=== PATIENT | male | born 1985 | race Caucasian/White ===

== ENCOUNTER 2020-06-04 15:25 | Emergency (ER) | payer MEDICAID, SELFPAY ==
[2020-06-04 15:35] VITALS: BP 135/92; PULSE 100; RESP 18; TEMP 36.7; O2SAT 96; BMI 24.4
--- NOTE | 2020-06-04 15:41 | PC.NURSE ---
Pt tearful, visibly upset but cooperative. No exchange teller indicated at this time-pt searched by police prior to arrival. offered and accepted consult by recovery team, pending eval and medical clearance by MD first. Requested and given tissues, water.
--- NOTE | 2020-06-04 15:42 | PC.NURSE ---
Sammi from CARE team called and is contacting recovery team for pt for resoures.
--- NOTE | 2020-06-04 16:13 | ED.ALCOHOL ---
HPI - Alcohol General Chief Complaint: ETOH/Substance Use Stated Complaint: DRUG USE Time Seen by Provider: 06/04/20 15:39 Source: patient Mode of arrival: EMS Limitations: no limitations History of Present Illness HPI narrative: Patient is a 35-year-old male with a past medical history of hypertension who recently completed a 30 day rehab for opiate addiction, he was found in his car by [employer], patient was unarousable initially but were able to arouse him without using Narcan. Patient admits to using 1 bag of heroin. Patient states he got home on Sunday, has been staying with his father and his grandmother but feels overwhelmed with life in general, more specifically, he is worried he cannot pay his mortgage and he will lose his house. It is also his daughter 2nd birthday and he is emotional about it. Denies SI or HI and has no physical complaints. Patient states he does not know if he necessarily needs to return to rehab but needs some help getting his life in order. Related Data Previous Rx's Medication Instructions Recorded naloxone [Narcan] 4 mg INTRANASAL Q2M PRN #2 ea 06/04/20 Allergies Allergy/AdvReac Type Severity Reaction Status Date / Time No Known Allergies Allergy Unverified 12/11/19 15:52 Review of Systems Review of Systems: Yes all other systems are reviewed and are negative PMFSH Past Medical History Medical History Opiate abuse, continuous Social History Social History Alcohol intake: current Smoking Status: Smoker, status unknown Use of substances other than those prescribed or required for medical reasons: Yes Substance Use Type: Heroin Advance Directives: No Advance Directives Information Provided: Yes Physical Exam Vital Signs: Vital Signs: Last Vital Signs Temp 98.0 F 06/04/20 15:35 Pulse 100 06/04/20 15:35 Resp 18 06/04/20 15:35 BP 135/92 H 06/04/20 15:35 Pulse Ox 96 06/04/20 15:35 Body Mass Index 24.4 Const: General: cooperative, healthy appearing, comfortable, anxious (teary) and poor hygiene Orientation/consciousness: patient oriented x3 Limitations: no limitations HENMT: Head: Yes normal to inspection Ears: external ears abnormal (Dried blood on the right ear lobe) Eyes: General: appearance normal, both eyes and all related structures Pupils: Pinpoint pupils bilaterally Neck: Neck: Yes normal visual inspection and Yes full ROM Resp: Effort & Inspection: normal respiratory effort and able to speak in complete sentences Neuro: General: patient oriented x3 Extrem: General: Yes normal to inspection and Yes full ROM Psych: Appearance: disheveled Speech and movement: Normal speech and movement present Affect: Sad affect present Attitude: cooperative Thought process: Normal thought process present Thought content: suicidality and no homicidality Insight: Fair insight present (Psych) Judgement: Fair judgement present (Psych) Course Course Course Narrative: Patient is a 35-year-old male with a past medical history of hypertension who recently completed a 30 day rehab for opiate addiction, he was found in his car by [employer], patient was unarousable so they administered Narcan. After my discussion with him, is evident he is overwhelmed with ADLs, getting his bills in order so he relapsed. Will order drug screen, ETOH and eye care team eval. Will ask the legal recovery specialist is to speak with him as well. Reevaluation(s) Reevaluation #1: Patient advised me that an hour ago that he had tested positive for COVID, the date is unclear. I retested him for COVID and it was negative. Care team spoke with patient, they feel he is fine to be discharged in the care of his mother. Patient is also asking to be discharged. We will have the legal recovery specialist speak with the patient then call his mother and release him to the care of his mother. Time: 18:44 MDM - Alcohol Lab Data Labs: Lab Results 06/04/20 06/04/20 Range/Units 16:48 18:03 Ethyl Alcohol < 10 mg/dL COVID-19 ([place]) Negative (Negative) COVID-19 Clin Com See Note Discharge Plan Discharge Clinical Impression: Opioid use disorder Patient Disposition: Home, Self-Care Instructions: Opioid Use Disorder (ED) Additional Instructions: If you decide you would be in her best interest to return to a rehab facility, please come back to the ED and we will help you locate a facility if you are unable to find one on your own. I have also sent a prescription for Narcan to your pharmacy. Please be sure to fill this and have it available for your use or your family or friends use. Prescriptions: New Narcan 4 mg/actuation spray,non-aerosol 4 mg intranasal Q2M PRN (Reason: opioid overdose) Qty: 2 RF: 1
[2020-06-04 17:29] LABS: Ethanol < 10 mg/dL
--- NOTE | 2020-06-04 17:33 | PC.NURSE ---
CARE team at bedside
--- NOTE | 2020-06-04 18:06 | MHC.CARE ---
CARE Team meets with pt for consult due to recent relapse. Pt states that approx one month ago he was admitted to a [place] 35 facility due to heroin use. He states that once he was released, he was unable to fill suboxone due to change of insurance. He reports that that this lead to him snorting one bag of heorin today. He states that he pulled over and nodded off in his car, resulting in being brought to the ED. Pt states that his suboxone script is now availabel to him, and he denies needing any support with this. Pt is encouraged to come to the ED in the future if he needs help accessing suboxone, which he agrees to. Pt then reports that he is covid+, diagnosed 4 days ago. CARE Team communicates this with ED provider, MARISA Modi and JERMAN Rouse.
[2020-06-04 18:24] LABS: COVID-19 Test Negative (Negative)
--- NOTE | 2020-06-04 18:27 | PC.NURSE ---
Pt nodding off in bed, but easily arousable to verbal stimuli.
--- NOTE | 2020-06-04 19:09 | MHC.RECOVSUP ---
provide with resource o Current location: [place] o Identified substance use concern: Opioid - Support ? Intervention: o Community resources provided o Harm reduction discussion ? Plan: o Referral to CCC o Patient to follow up with H after discharge ? Additional information: I was able to engage with pt briefly before he was d/c. pt was found unresponsive in his vehicle. he was recently [place] due to his insurance lapsing. he has not been able to get his Rx of suboxone filled because of being uninsured. pt stated that he does not have a hx of mental health. I was able to provide him with recovery support and well as recovery resources. pt is experiencing homelessness and is living out of his car as a direct result of his drug use.
[2020-06-04 19:10] VITALS: RESP 16; O2SAT 97
== END 2020-06-04 19:11 | disposition home or self-care (01) ==
PROVIDERS: Physician Assistant; Emergency Provider Emergency Medicine Emergency Medical Services
DX: F11.10 Opioid abuse, uncomplicated (principal)
CPT/HCPCS: 36415; 80320; 87635; 99283; 99285

== ENCOUNTER 2021-08-21 15:43 | Emergency (ER) | payer MEDICAID, SELFPAY ==
[2021-08-21 16:09] VITALS: BP 151/96; PULSE 95; RESP 18; TEMP 36.9; O2SAT 96; BMI 25.4
== END 2021-08-21 17:58 | disposition left against medical advice (07) ==
PROVIDERS: Emergency Provider Emergency Medicine; PCP Internal Medicine
DX: M25.562 Pain in left knee (principal); M25.561 Pain in right knee
CPT/HCPCS: 99281

== ENCOUNTER 2024-02-14 21:03 | Emergency (ER) | payer MEDICAID, SELFPAY ==
[2024-02-14 21:31] VITALS: BP 155/103; PULSE 108; RESP 16; TEMP 37.5; O2SAT 96; BMI 26.9
--- NOTE | 2024-02-14 22:04 | PC.NURSE ---
patient exhibits unusual level of confusion, stated from the bathroom im shaking because im stressed out and reported he felt i was being rude to him. i explained that he would have other people to speak to if he felt he did not want to talk to me, notified charge nurse.
[2024-02-14 22:30] LABS: MANUAL DIFF FLAG NO
[2024-02-14 22:33] LABS: Basophils Percent Auto 0.6 % (0-2); Eosinophils Absolute Auto 0.1 X10*3/uL (0.0-0.4); Eosinophils Percent Auto 1.9 % (0-4); Hematocrit 38.3 % (42.0-52.0); Hemoglobin 13.6 g/dl (14.0-18.0); Imm Gran Abs Auto 0.01 X10*3/uL (0.00-0.03); Imm Gran Pct Auto 0.3 % (0.0-0.4); Mean Corpuscular HGB Conc 35.5 g/dl (31.0-36.0); Mean Corpuscular Hemoglobin 29.3 pg (27.0-33.0); Mean Corpuscular Volume 82.5 fL (80.0-98.0); Mean Platelet Volume 9.2 fL (9.4-12.4); Monocytes Absolute Auto 0.2 X10*3/uL (0.1-1.2); Monocytes Percent Auto 6.3 % (2-11); Neutrophils Absolute Auto 2.3 x10*3/uL (2.0-8.3); Neutrophils Percent Auto 63.9 % (45-73); Platelet Count 181 X10*3/uL (160-400); Red Blood Count 4.64 X10*6/uL (4.60-5.80); Red Cell Distribution Width 12.5 % (11.0-16.0); White Blood Count 3.6 X10*3/uL (4.8-10.8)
--- NOTE | 2024-02-14 22:38 | PC.NURSE ---
t/w completed person search of client revealing no evidence of injury or contraband with client. patient only had long acting lopressor and zoloft as medications accompanying client when asked client stated his other medications was at a parents home, t/w explained some facilities would require his own medications to accompany client.
[2024-02-14 22:42] LABS: Ethanol 84 mg/dL
[2024-02-14 22:45] LABS: Alanine Aminotransferase 33 U/L (0-40); Albumin Level 4.6 g/dL (3.5-5.0); Alkaline Phosphatase 81 U/L (39-117); Anion Gap 13 (12-20); Aspartate Amino Transferase 54 U/L (5-37); Bilirubin Total 0.6 mg/dL (0.0-1.0); Blood Urea Nitrogen 14 mg/dL (9-16); Calcium 9.1 mg/dL (8.4-10.2); Carbon Dioxide 28 mmol/L (22-29); Chloride 104 mmol/L (96-108); Creatinine Clr Calc Pharmacy 129.6; Estimated Glomerular Filt Rate > 60; Glucose Random 118 mg/dL (60-115); Potassium 3.9 mmol/L (3.3-5.1); Sodium 141 mmol/L (135-145); Total Protein 7.3 g/dL (6.5-8.0)
[2024-02-14 22:51] LABS: Amphetamine Screen Urine Not Detected (Not Detect); Barbiturates, Urine Not Detected (Not Detect); Benzodiazepines Screen Urine POSITIVE (Not Detect); Buprenorphine Scr Not Detected (Not Detect); Cannabinoid Screen Urine Not Detected (Not Detect); Cocaine Screen Urine POSITIVE (Not Detect); Fentanyl, urine POSITIVE (Not Detect); Methadone Screen, Urine Positive (Not Detect); Opiate Screen Urine POSITIVE (Not Detect); Oxycodone Screen Urine Not Detected (Not Detect); Phencyclidine Screen Urine Not Detected (Not Detect)
--- NOTE | 2024-02-15 01:58 | ED_ITS ---
HPI - Psych General Chief Complaint: Psychiatric Symptoms Stated Complaint: crisis Time Seen by Provider: 02/14/24 23:04 Source: patient and EMS Mode of arrival: ambulatory Limitations: no limitations History of Present Illness ED Provider: rodri GAMBOA Narrative: patient homeless for last 3 years using IV fentanyl with increased depression anxiety comes here as does not feel safe denies any SI asking for some help for his depression anxiety and substance abuse Related Data Previous Rx's ?Medication ?Instructions ?Recorded naloxone 4 mg/actuation nasal 4 mg intranasal Q2M PRN opioid 06/04/20 spray (Narcan) overdose #2 ea Allergies Allergy/AdvReac Type Severity Reaction Status Date / Time No Known Allergies Allergy Verified 02/14/24 21:34 Review of Systems 2 Review of Systems: Yes all other systems are reviewed and are negative PMFSH Past Medical History Medical History Opiate abuse, continuous Social History Social History Alcohol intake: current Substance Use Type: Heroin Advance Directives: No Advance Directives Information Provided: No Do you have a plan to hurt others: No Plan and Vague Physical Exam 2 Vital Signs: Vital Signs: Last Vital Signs Temp 99.5 F 02/14/24 21:31 Pulse 108 H 02/14/24 21:31 Resp 16 02/14/24 21:31 BP 155/103 H 02/14/24 21:31 Pulse Ox 96 02/14/24 21:31 O2 Del Method Room Air 02/14/24 21:31 BMI result Body Mass Index 26.9 Appearance: Alert. Oriented X3. No acute distress. Eyes: PERRLA, No Nystagmus ENT: Pharynx normal. Oral Mucosa moist Neck: Normal inspection. Neck supple. CVS: Normal heart rate and rhythm. Pulses normal. Respiratory: No respiratory distress. Equal air entry bilateral, no wheezing/rales/rhonchi Abdomen: Soft and nontender. Bowel sounds are present, no mass palpable, no CVA tenderness Skin: Skin warm and dry. Normal skin color. Normal skin turgor. Extremities: No lower extremity edema. No calf tenderness psych: feel anxious and depressed no SI no hallucination or delusion Neuro: Oriented X 3. No motor deficit. No sensory deficit.No cerebellar signs , cranial nerves II-XII intact Medical Decision Making Medical Decision Making MDM Narrative: will consult care team for increased anxiety and depression and substance abuse Lab Data [facility] Lab Attestation statement: I reviewed the patient's lab results. 02/14/24 22:25 02/14/24 22:25 Labs: Lab Results 02/14/24 02/14/24 Range/Units 22:25 22:35 WBC 3.6 L (4.8-10.8) X10*3/uL RBC 4.64 (4.60-5.80) X10*6/uL Hgb 13.6 L (14.0-18.0) g/dl Hct 38.3 L (42.0-52.0) % MCV 82.5 (80.0-98.0) fL MCH 29.3 (27.0-33.0) pg MCHC 35.5 (31.0-36.0) g/dl RDW 12.5 (11.0-16.0) % Plt Count 181 (160-400) X10*3/uL MPV 9.2 L (9.4-12.4) fL Immature Gran % (Auto) 0.3 (0.0-0.4) % Neut % (Auto) 63.9 (45-73) % Lymph % (Auto) 27.0 (20-40) % [place] % (Auto) 6.3 (2-11) % Eos % (Auto) 1.9 (0-4) % Baso % (Auto) 0.6 (0-2) % Lymph # (Auto) 1.0 L (1.2-4.9) X10*3/uL [place] # (Auto) 0.2 (0.1-1.2) X10*3/uL Eos # (Auto) 0.1 (0.0-0.4) X10*3/uL Baso # (Auto) 0.0 (0.0-0.2) X10*3/uL Abs Immat Gran (auto) 0.01 (0.00-0.03) X10*3/uL Absolute Neuts (auto) 2.3 (2.0-8.3) x10*3/uL Absolute Nucleated RBC 0.000 (0.0-0.012) X10*3/uL Nucleated RBC % (auto) 0.0 (0.0-0.2) /100WBC Sodium 141 (135-145) mmol/L Potassium 3.9 (3.3-5.1) mmol/L Chloride 104 (96-108) mmol/L Carbon Dioxide 28 (22-29) mmol/L Anion Gap 13 (12-20) BUN 14 (9-16) mg/dL Creatinine 0.89 (0.5-1.4) mg/dL Estim Creat Clear Calc 129.6 Estimated GFR > 60 Random Glucose 118 H (60-115) mg/dL Calcium 9.1 (8.4-10.2) mg/dL Total Bilirubin 0.6 (0.0-1.0) mg/dL AST 54 H (5-37) U/L ALT 33 (0-40) U/L Alkaline Phosphatase 81 (39-117) U/L Total Protein 7.3 (6.5-8.0) g/dL Albumin 4.6 (3.5-5.0) g/dL Urine Opiates Screen POSITIVE H (Not Detect) Ur Buprenorphine Scrn Not Detected (Not Detect) ng/mL Ur Oxycodone Screen Not Detected (Not Detect) ng/mL Urine Methadone Screen Positive H (Not Detect) ng/mL Urine Fentanyl Screen POSITIVE H (Not Detect) Ur Barbiturates Screen Not Detected (Not Detect) Ur Phencyclidine Scrn Not Detected (Not Detect) Ur Amphetamines Screen Not Detected (Not Detect) U Benzodiazepines Scrn POSITIVE H (Not Detect) Urine Cocaine Screen POSITIVE H (Not Detect) U Marijuana (THC) Screen Not Detected (Not Detect) Ethyl Alcohol 84 mg/dL Discharge Plan Discharge Clinical Impression: Depression, Acute anxiety, Active substance abuse Patient Disposition: Still a Patient Prescriptions: No Action Narcan 4 mg/actuation spray,non-aerosol 4 mg intranasal Q2M PRN (Reason: opioid overdose) Qty: 2 1RF Rx Instructions: spray 1 dose into ONE nostril; alternate nostrils w each dose until help arrives Interventions: Dickey-Suicide Risk Severity Scale Last Done: 02/14/24 22:19 Print Language: Frisian
[2024-02-15 06:00] VITALS: RESP 18
--- NOTE | 2024-02-15 06:59 | PC.NURSE ---
Assumed care of patient at 0645, patient appears to be sleeping, respirations even and unlabored, no apparent distress noted. Continue plan of care for CARE team re-eval this am
--- NOTE | 2024-02-15 09:43 | MHC.RECOVSUP ---
Pt has been using (IV) $60 worth of opiates and $60 worth of cocaine for each of the past two days. pt is a self-reported chronic relapser. pt is on parole and is facing signifcant care home time if he does not get into treatment/program.
--- NOTE | 2024-02-15 10:20 | PC.NURSE ---
methadone verified by this RN by calling [facility] of [place], last dosed 02/12 at 120 mg
--- NOTE | 2024-02-15 10:28 | MHC.CARE ---
Pt has been reassessed as a follow up to his initial assessment. Pt's level of risk appears low and he is requesting assistance with his substance use. Pt has been referred to the Recovery team for detox placement.
--- NOTE | 2024-02-15 10:35 | HE.PHANOTE ---
RE: METHADONE DOSING Last dose of methadone 120 mg was given on 02/13/24 @1146 per JERMAN Edward at [facility] [phone].
[2024-02-15] MEDS: methADONE HCl 20 MG/2 ML ORAL.CONC 120 MG PO (10:48)
[2024-02-15] MEDS: Metoprolol Succinate ER 50 MG TAB.ER.24H PO (10:49)
[2024-02-15] MEDS: Sertraline HCL 50 MG TABLET 150 MG PO (10:49)
[2024-02-15] MEDS: Amphetamine Mixed Salts 20 MG TABLET PO (10:49)
[2024-02-15] MEDS: clonazePAM 1 MG TABLET PO ×2 (10:53→17:46)
--- NOTE | 2024-02-15 11:56 | MHC.CARE ---
Pt's Language Arts Teacher: Jacki Best [phone]
--- NOTE | 2024-02-15 12:29 | PC.NURSE ---
This RN spoke with nursing at [facility] in [place] regarding medication dosages. Per RN, patient takes Hydroxyzine 50mg in the morning and 25mg at 4pm. RN also reports that patient is taking 100mg Metoprolol
[2024-02-15 12:33] VITALS: BP 139/87; PULSE 78; RESP 16; TEMP 36.7; O2SAT 95
--- NOTE | 2024-02-15 13:14 | PHA.MEDREC ---
Pharmacy Consult ? Medication Reconciliation Pharmacy has reviewed the medication reconciliation done by nursing staff.
[2024-02-15] MEDS: hydrOXYzine HCL 25 MG TABLET PO (16:21)
[2024-02-15 17:46] VITALS: BP 133/80; PULSE 77; RESP 16; TEMP 36.7; O2SAT 98
--- NOTE | 2024-02-15 19:04 | PC.NURSE ---
patient appears to remain at rest presently respirations are even and unlabored patient appears in no distress.
[2024-02-16 06:04] VITALS: RESP 16
--- NOTE | 2024-02-16 08:26 | PC.NURSE ---
meeting with care team
--- NOTE | 2024-02-16 08:42 | ECG_ITS ---
Test Reason : cocaine use Blood Pressure : / mmHG Vent. Rate : 057 BPM Atrial Rate : 057 BPM P-R Int : 118 ms QRS Dur : 094 ms QT Int : 478 ms P-R-T Axes : 047 025 015 degrees QTc Int : 465 ms Sinus bradycardia Otherwise normal ECG No previous ECGs available Referred By: Lokesh Smith Electronically Signed By:CALEB ELIAS MD
[2024-02-16 08:54] VITALS: BP 144/79; PULSE 66; RESP 18; TEMP 36.4; O2SAT 98
[2024-02-16 08:56] VITALS: BP 144/79; PULSE 66
[2024-02-16] MEDS: Metoprolol Succinate ER 50 MG TAB.ER.24H PO (08:56)
[2024-02-16] MEDS: hydrOXYzine HCL 50 MG TABLET PO (08:56)
[2024-02-16] MEDS: Amphetamine Mixed Salts 20 MG TABLET PO ×2 (08:56→15:06)
[2024-02-16] MEDS: Sertraline HCL 50 MG TABLET 150 MG PO (08:56)
[2024-02-16] MEDS: methADONE HCl 20 MG/2 ML ORAL.CONC 120 MG PO (08:57)
[2024-02-16] MEDS: clonazePAM 1 MG TABLET PO ×2 (09:09→15:06)
--- NOTE | 2024-02-16 09:37 | MHC.EDTECH ---
Patient requested to shower gave patient new hospital clothes and soap I clean his room and changed his bed cover
--- NOTE | 2024-02-16 10:11 | MHC.RECOVRN ---
Met with Minesh in [facility] where he agreed to meet with this nurse as he is detox and support seeking. He reported using fentanyl 3 bundles IV and cocaine $80 worth IV for the last 3 days prior to presenting in the ED (36 hours ago). Recent stressors include getting released from long term after serving for 4 months and having multiple court cases coming up. He reports having a long history of substance use disorder care including a section 35 as well as treatment as [facility]. He denies ever needing for Narcan to be administered/denies hx of overdose. He denies SI/HI (no plan or intent) and denies AH/VH. His longest periods of sobriety were in 2006 where he was clean for a year and half and when I was 32 where he had been sober for one year and one month. Referrals have been sent to [facility], and [facility] for review.
--- NOTE | 2024-02-16 11:00 | MHC.RECOVRN ---
[facility] no bed availability today.
[2024-02-16 14:58] VITALS: BP 137/87; PULSE 77; RESP 22; TEMP 37; O2SAT 96
[2024-02-16] MEDS: hydrOXYzine HCL 25 MG TABLET PO (15:05)
--- NOTE | 2024-02-16 15:29 | MHC.RECOVRN ---
There is not bed availability today at any of the following [facility] facilities: [facility], [facility], [facility]. Will attempt to bed search again in the morning. If no availability tomorrow, pt will be discharged to respite with resources.
--- NOTE | 2024-02-16 18:57 | PC.NURSE ---
patient appears to remain at rest presently respirations are even and unlabored patient appears in no distress.
[2024-02-17 00:58] VITALS: BP 137/84; PULSE 67; RESP 16; TEMP 36.7; O2SAT 98
[2024-02-17] MEDS: Sertraline HCL 50 MG TABLET 150 MG PO (08:15)
[2024-02-17] MEDS: Amphetamine Mixed Salts 20 MG TABLET PO (08:15)
[2024-02-17] MEDS: hydrOXYzine HCL 50 MG TABLET PO (08:15)
[2024-02-17] MEDS: Metoprolol Succinate ER 50 MG TAB.ER.24H PO (08:16)
[2024-02-17] MEDS: clonazePAM 1 MG TABLET PO (08:16)
--- NOTE | 2024-02-17 08:51 | MHC.RECOVRN ---
No male bed availability today at [facility]. Minesh wants to get discharged and spend Thanksgiving with family. He will be discharging to family's house in [place] with resources and phone numbers to call when he feels ready.
[2024-02-17] MEDS: Metoprolol Tartrate 50 MG TABLET PO (09:15)
[2024-02-17] MEDS: methADONE HCl 20 MG/2 ML ORAL.CONC 120 MG PO (09:15)
[2024-02-17 09:19] VITALS: BP 133/87; PULSE 83; RESP 20; TEMP 36.6; O2SAT 96
--- NOTE | 2024-02-17 09:23 | MHC.EDTECH ---
Addendum entered by Susan Anderson 02/17/24 10:13: to showered Original Note: Patient ambulated to bathroom ,AM care done ,bed change and linen change . RN aware
== END 2024-02-17 11:24 | disposition home or self-care (01) ==
PROVIDERS: Emergency Provider Internal Medicine; PCP Internal Medicine
DX: F33.1 Major depressive disorder, recurrent, moderate (principal); F41.9 Anxiety disorder, unspecified; F11.10 Opioid abuse, uncomplicated; R00.1 Bradycardia, unspecified; Z51.81 Encounter for therapeutic drug level monitoring; Z79.899 Other long term (current) drug therapy
CPT/HCPCS: 36415; 80053; 80307; 85025; 93005; 99285; S9485

== ENCOUNTER → 2024-02-16 08:42 | Outpatient (BNV) | payer MEDICAID, SELFPAY | PROVIDERS: Emergency Provider Internal Medicine; PCP Internal Medicine; Visit Provider Internal Medicine Cardiovascular Disease | DX: R00.1 Bradycardia, unspecified (principal) | CPT/HCPCS: 93010 ==

== ENCOUNTER 2024-05-30 21:43 | Emergency (ER) | payer MEDICAID, SELFPAY ==
[2024-05-30 21:46] VITALS: BP 137/90; PULSE 112; RESP 16; TEMP 36.3; O2SAT 97; BMI 27.1
[2024-05-30 22:44] LABS: MANUAL DIFF FLAG NO
[2024-05-30 22:45] LABS: Basophils Percent Auto 0.8 % (0-2); Eosinophils Absolute Auto 0.1 X10*3/uL (0.0-0.4); Eosinophils Percent Auto 1.4 % (0-4); Hematocrit 40.3 % (42.0-52.0); Hemoglobin 14.2 g/dl (14.0-18.0); Imm Gran Abs Auto 0.02 X10*3/uL (0.00-0.03); Imm Gran Pct Auto 0.4 % (0.0-0.4); Lymphocytes Absolute Auto 1.2 X10*3/uL (1.2-4.9); Lymphocytes Percent Auto 24.9 % (20-40); Mean Corpuscular HGB Conc 35.2 g/dl (31.0-36.0); Mean Corpuscular Hemoglobin 29.2 pg (27.0-33.0); Mean Corpuscular Volume 82.8 fL (80.0-98.0); Mean Platelet Volume 9.3 fL (9.4-12.4); Monocytes Absolute Auto 0.3 X10*3/uL (0.1-1.2); Monocytes Percent Auto 6.9 % (2-11); Neutrophils Absolute Auto 3.2 x10*3/uL (2.0-8.3); Neutrophils Percent Auto 65.6 % (45-73); Platelet Count 166 X10*3/uL (160-400); Red Blood Count 4.87 X10*6/uL (4.60-5.80); Red Cell Distribution Width 13.4 % (11.0-16.0); White Blood Count 4.9 X10*3/uL (4.8-10.8)
[2024-05-30 22:47] LABS: Appearance Urine Clear; Color Urine Yellow; Glucose Urine UA Negative (Negative); Leukocyte Esterase Urine Negative (Negative); Nitrite Urine Negative (Negative); PH 5.5 (5.0-9.0); Specific Gravity - Urine 1.015 (1.005-1.025); Urine Blood Negative (Negative); Urine Ketones Negative (Negative); Urine Protein Negative (Neg-Trace)
[2024-05-30 22:49] LABS: Bacteria Urine None Seen (None Seen); Hyaline Casts Urine 0-2 /LPF (0-2); RBC Urine 0-2 /HPF (0-2); Squamous Epithelial Cell Urine 0-2 /HPF (0-2); WBC Urine 0-5 /HPF (0-5)
[2024-05-30 22:59] LABS: Acetaminophen LAB < 3 mcg/mL (<30); Salicylate < 5.0 mg/dL (15-30)
[2024-05-30 23:00] LABS: Alanine Aminotransferase 24 U/L (0-40); Albumin Level 4.5 g/dL (3.5-5.0); Alkaline Phosphatase 91 U/L (39-117); Anion Gap 14 (12-20); Aspartate Amino Transferase 25 U/L (5-37); Bilirubin Total 0.3 mg/dL (0.0-1.0); Blood Urea Nitrogen 17 mg/dL (9-16); Calcium 9.3 mg/dL (8.4-10.2); Carbon Dioxide 28 mmol/L (22-29); Chloride 104 mmol/L (96-108); Creatinine Clr Calc Pharmacy 96.5; Estimated Glomerular Filt Rate > 60; Ethanol 78 mg/dL; Glucose Random 101 mg/dL (60-115); Potassium 4.5 mmol/L (3.3-5.1); Sodium 141 mmol/L (135-145); Total Protein 8.1 g/dL (6.5-8.0)
[2024-05-30 23:07] LABS: Amphetamine Screen Urine POSITIVE (Not Detect); Barbiturates, Urine Not Detected (Not Detect); Benzodiazepines Screen Urine Not Detected (Not Detect); Buprenorphine Scr Not Detected (Not Detect); Cannabinoid Screen Urine Not Detected (Not Detect); Cocaine Screen Urine POSITIVE (Not Detect); Fentanyl, urine POSITIVE (Not Detect); Methadone Screen, Urine Positive (Not Detect); Opiate Screen Urine Not Detected (Not Detect); Oxycodone Screen Urine Not Detected (Not Detect); Phencyclidine Screen Urine Not Detected (Not Detect)
[2024-05-30 23:30] LABS: Influenza A PCR NEGATIVE (Negative); Influenza B PCR NEGATIVE (Negative); Resp Syncy Virus RNA Qual PCR NEGATIVE (Negative); SARS COV2 PCR INHOUSE NEGATIVE (Negative)
--- NOTE | 2024-05-31 02:27 | ED.PSYCH ---
HPI - Psych General Chief Complaint: Psychiatric Symptoms Stated Complaint: Crisis Time Seen by Provider: 05/31/24 00:32 Source: patient Limitations: no limitations History of Present Illness ED Provider: Johana Kelley PA-C HPI Narrative: 39-year-old male with a history of anxiety and depression presents with vague SI. Patient states he is ?not feeling mentally stable?. No specific plan for self-harm. Denies HI. Related Data Home Medications ?Medication ?Instructions ?Recorded ?Confirmed clonazepam 1 mg tablet 1 mg PO BID PRN Anxiety 02/15/24 05/30/24 dextroamphetamine-amphetamine 20 1 tab PO BID 02/15/24 05/30/24 mg tablet hydroxyzine HCl 25 mg tablet 25 mg PO DAILY@1600 02/15/24 05/30/24 hydroxyzine pamoate 50 mg capsule 50 mg PO DAILY Anxiety 02/15/24 05/30/24 methadone 10 mg/mL oral 120 mg PO DAILY 02/15/24 05/30/24 concentrate (Methadone Intensol) metoprolol succinate 50 mg 100 mg PO DAILY 02/15/24 05/30/24 tablet,extended release 24 hr sertraline 100 mg tablet 150 mg PO DAILY 02/15/24 05/30/24 Allergies Allergy/AdvReac Type Severity Reaction Status Date / Time No Known Allergies Allergy Verified 05/30/24 21:47 Review of Systems Review of Systems: Yes all other systems are reviewed and are negative Constitutional: Constitutional: Denies fatigue and Denies fever(s) Cardiovascular: Cardiovascular: Denies chest pain and Denies dyspnea Respiratory: Respiratory: Denies cough and Denies dyspnea Gastrointestinal: Gastrointestinal: Denies abdominal pain Endocrine: Endocrine: Denies fatigue [facility] Past Medical History Attestation statement: The following information was validated with the patient. Medical History Opiate abuse, continuous Social History Social History Alcohol intake: current Smoked in Last 30 Days: Yes Substance Use Type: Crack/Cocaine and Other Substance Use Type Other:: Fentanyl Substance Use Frequency: Monthly Last Used Substance: Days (ago) Advance Directives: No Advance Directives Information Provided: No Do you have a plan to hurt others: No Plan Physical Exam Vital Signs: Vital Signs: Last Vital Signs Temp 97.3 F 05/30/24 21:46 Pulse 112 H 05/30/24 21:46 Resp 16 05/30/24 21:46 BP 137/90 H 05/30/24 21:46 Pulse Ox 97 05/30/24 21:46 O2 Del Method Room Air 05/30/24 21:46 BMI result Body Mass Index 27.1 Const: Other: Alert Orientation/consciousness: patient oriented x3 Resp: Effort & Inspection: normal respiratory effort Cardio: Other: Normal peripheral perfusion Skin: Other: Warm dry no rash Neuro: General: patient oriented x3, gait normal, no focal motor deficits and CN's II-XI intact bilaterally Psych: Other: Cooperative Medical Decision Making Medical Decision Making MDM Narrative: 39-year-old male with a history of polysubstance abuse, anxiety and depression presents with vague SI. Patient states he is ?not feeling mentally stable?. No specific plan for self-harm. Denies HI. Problem: Anxiety and depression History: Per patient I have considered the following differential diagnoses: SI, HI, decompensated psychiatric illness, drug/alcohol intoxication Plan: Patient will be referred to the care team, screening labs including serum ethanol and drug screen were obtained. I have independently reviewed the following tests: Labs: No leukocytosis, not anemic, no electrolyte abnormality, drug screen glaring only positive for methadone, fentanyl, amphetamine, cocaine, ethanol 78 Lab Data 05/30/24 22:36 05/30/24 22:36 Labs: Lab Results 05/30/24 Range/Units 22:36 WBC 4.9 (4.8-10.8) X10*3/uL RBC 4.87 (4.60-5.80) X10*6/uL Hgb 14.2 (14.0-18.0) g/dl Hct 40.3 L (42.0-52.0) % MCV 82.8 (80.0-98.0) fL MCH 29.2 (27.0-33.0) pg MCHC 35.2 (31.0-36.0) g/dl RDW 13.4 (11.0-16.0) % Plt Count 166 (160-400) X10*3/uL MPV 9.3 L (9.4-12.4) fL Immature Gran % (Auto) 0.4 (0.0-0.4) % Neut % (Auto) 65.6 (45-73) % Lymph % (Auto) 24.9 (20-40) % [place] % (Auto) 6.9 (2-11) % Eos % (Auto) 1.4 (0-4) % Baso % (Auto) 0.8 (0-2) % Lymph # (Auto) 1.2 (1.2-4.9) X10*3/uL [place] # (Auto) 0.3 (0.1-1.2) X10*3/uL Eos # (Auto) 0.1 (0.0-0.4) X10*3/uL Baso # (Auto) 0.0 (0.0-0.2) X10*3/uL Abs Immat Gran (auto) 0.02 (0.00-0.03) X10*3/uL Absolute Neuts (auto) 3.2 (2.0-8.3) x10*3/uL Absolute Nucleated RBC 0.000 (0.0-0.012) X10*3/uL Nucleated RBC % (auto) 0.0 (0.0-0.2) /100WBC Sodium 141 (135-145) mmol/L Potassium 4.5 (3.3-5.1) mmol/L Chloride 104 (96-108) mmol/L Carbon Dioxide 28 (22-29) mmol/L Anion Gap 14 (12-20) BUN 17 H (9-16) mg/dL Creatinine 1.15 (0.5-1.4) mg/dL Estim Creat Clear Calc 96.5 Estimated GFR > 60 Random Glucose 101 (60-115) mg/dL Calcium 9.3 (8.4-10.2) mg/dL Total Bilirubin 0.3 (0.0-1.0) mg/dL AST 25 (5-37) U/L ALT 24 (0-40) U/L Alkaline Phosphatase 91 (39-117) U/L Total Protein 8.1 H (6.5-8.0) g/dL Albumin 4.5 (3.5-5.0) g/dL Urine Color Yellow Urine Appearance Clear Urine pH 5.5 (5.0-9.0) Ur Specific Wil[place] 1.015 (1.005-1.025) Urine Protein Negative (Neg-Trace) mg/dL Urine Glucose (UA) Negative (Negative) mg/dL Urine Ketones Negative (Negative) mg/dL Urine Blood Negative (Negative) Urine Nitrite Negative (Negative) Ur Leukocyte Esterase Negative (Negative) Urine RBC 0-2 (0-2) /HPF Urine WBC 0-5 (0-5) /HPF Ur Squamous Epith Cells 0-2 (0-2) /HPF Urine Bacteria None Seen (None Seen) Hyaline Casts 0-2 (0-2) /LPF Salicylates < 5.0 L (15-30) mg/dL Urine Opiates Screen Not Detected (Not Detect) Ur Buprenorphine Scrn Not Detected (Not Detect) ng/mL Ur Oxycodone Screen Not Detected (Not Detect) ng/mL Urine Methadone Screen Positive H (Not Detect) ng/mL Urine Fentanyl Screen POSITIVE H (Not Detect) Acetaminophen < 3 (<30) mcg/mL Ur Barbiturates Screen Not Detected (Not Detect) Ur Phencyclidine Scrn Not Detected (Not Detect) Ur Amphetamines Screen POSITIVE H (Not Detect) U Benzodiazepines Scrn Not Detected (Not Detect) Urine Cocaine Screen POSITIVE H (Not Detect) U Marijuana (THC) Screen Not Detected (Not Detect) Ethyl Alcohol 78 mg/dL COVID-19 ([place]) Cancelled COVID-19 Clin Com Cancelled Influenza Type A (PCR) NEGATIVE (Negative) Influenza Type B (PCR) NEGATIVE (Negative) RSV RNA Qual (PCR) NEGATIVE (Negative) SARS-CoV-2 RNA (RT-PCR) NEGATIVE (Negative) Discharge Plan Discharge Clinical Impression: Suicidal ideation Patient Disposition: Still a Patient Prescriptions: No Action metoprolol succinate 50 mg tablet extended release 24 hr 100 mg PO DAILY sertraline 100 mg tablet 150 mg PO DAILY hydroxyzine pamoate 50 mg capsule 50 mg PO DAILY dextroamphetamine-amphetamine 20 mg tablet 1 tab PO BID Rx Instructions: Pt takes dose at 0900 and 1400 clonazepam 1 mg tablet 1 mg PO BID PRN (Reason: Anxiety) methadone [Methadone Intensol] 10 mg/mL Concentrate 120 mg PO DAILY hydroxyzine HCl 25 mg Tablet 25 mg PO DAILY@1600 Interventions: Pender-Suicide Risk Severity Scale Last Done: 05/30/24 22:23 Print Language: Turkish
[2024-05-31 05:58] VITALS: BP 114/77; PULSE 59; RESP 16; TEMP 36.9; O2SAT 100
--- NOTE | 2024-05-31 06:55 | HE.PHANOTE ---
Methadone Methadone dose verified with [facility] [phone] ([place]). Last methadone dose was 120 mg given on 05/30/24 @1151. Verification sent up by JERMAN Villanueva.
--- NOTE | 2024-05-31 07:20 | PC.NURSE ---
Assumed care of patient at 0645, patient appears to be sleeping, respirations even and unlabored, no apparent distress noted. Continue plan of care for CARE team phan
[2024-05-31] MEDS: Amphetamine Mixed Salts 20 MG TABLET PO ×2 (08:15→13:58)
[2024-05-31] MEDS: hydrOXYzine HCL 50 MG TABLET PO (08:15)
[2024-05-31] MEDS: Sertraline HCL 50 MG TABLET 150 MG PO (08:15)
[2024-05-31] MEDS: Metoprolol Succinate ER 100 MG TAB.ER.24H PO (08:15)
[2024-05-31] MEDS: methADONE HCl 20 MG/2 ML ORAL.CONC 120 MG PO (08:16)
--- NOTE | 2024-05-31 12:05 | MHC.CARE ---
Patient evaluated by the CARE Team, he does not require an inpatient psychiatric admission and will be referred to the Recovery Team for possible detox placement. ED provider Dr. Smith updated
--- NOTE | 2024-05-31 12:34 | MHC.RECOVRN ---
Met with pt in [facility] to discuss ongoing substance use. Pt stated he has been using heroin/fentanyl and cocaine intermittently. Recently, he stated, he has been using daily via the IV route fentanyl 15-20 bags daily and $10-15 worth of cocaine via the IV route. Pt also stated he has been drinking 2 sleeves of Vodka nips daily for the last 10 days. He is also on methadone, 120mg daily which he gets form [facility] in [place]. He states he has had a 1 year period of sobriety; during that time he went to NA meetings in [place] and had a multimedia designer job, he states. He has had an extensive history of substance use related hospitalizations including at [facility], [place], [facility], and 2 Section 35s at [facility] and [facility]. He is currently on probation. He has Hepatitis C and chronic knee pain. He has mental health diagnosis of anxiety, depression, and PTSD. He states he has family/social reports but no housing/employment at the moment. Pt is support and ATS seeking. Referrals made to the following facilities for review. 1. [facility]. [facility]. [facility]. [facility]. [facility] Will follow up via phone call shortly.
--- NOTE | 2024-05-31 13:54 | MHC.RECOVRN ---
Minesh was accepted at [facility] for ATS. He is expected to be there for his admission at 20:00. He will be transported there via lyft at about 19:45 by the CARE team. ED MD and RN aware.
[2024-05-31] MEDS: hydrOXYzine HCL 25 MG TABLET PO (16:50)
[2024-05-31] MEDS: clonazePAM 1 MG TABLET PO (17:35)
[2024-05-31 18:23] VITALS: BP 129/74; PULSE 74; RESP 16; O2SAT 99
[2024-05-31] MEDS: Naloxone HCl Nasal TAKE HOME 4 MG SPRAY 8 MG NOSTRILALT (19:08)
== END 2024-05-31 19:57 ==
PROVIDERS: Emergency Provider Internal Medicine; PCP Physician Assistant
DX: R45.851 Suicidal ideations (principal); F32.A Depression, unspecified; F41.9 Anxiety disorder, unspecified; F19.10 Other psychoactive substance abuse, uncomplicated; F11.20 Opioid dependence, uncomplicated; Z03.818 Encounter for observation for suspected exposure to other biological agents ruled out; Z79.899 Other long term (current) drug therapy
CPT/HCPCS: 0241U; 80053; 80143; 80179; 80307; 81001; 85025; 99285; S9485

== ENCOUNTER 2024-06-19 15:04 | Emergency (ER) | payer MEDICAID, SELFPAY ==
--- NOTE | 2024-06-19 15:07 | ECG_ITS ---
Test Reason : OVERDOSE Blood Pressure : */* mmHG Vent. Rate : 61 BPM Atrial Rate : 61 BPM P-R Int : 144 ms QRS Dur : 92 ms QT Int : 454 ms P-R-T Axes : 28 21 34 degrees QTcB Int : 457 ms Normal sinus rhythm Septal infarct , age undetermined Abnormal ECG When compared with ECG of 16-Feb-2024 08:51, No significant change was found Referred By: Wenyd Gabriel Electronically Signed By: CALEB ELIAS MD
--- NOTE | 2024-06-19 15:17 | MHC.EDTECH ---
pt belongings secure in top shelf of [facility] closet by security. syringes and narcotics were found on pt by security and disposed of by security
[2024-06-19 15:38] VITALS: RESP 20; TEMP 36.5; BMI 26.5
--- NOTE | 2024-06-19 17:22 | ED_ITS ---
HPI - General Adult General Chief complaint: General Medical Stated complaint: overdose Time Seen by Provider: 06/19/24 16:05 Source: patient Mode of arrival: ambulatory Limitations: no limitations History of Present Illness ED Provider: Dr. Wendy Gabriel HPI narrative: Patient comes to emergency room via private vehicle. Patient's friends dropped him off. According to the patient, he admits that he has been using drugs. Patient's friend who dropped him off told the triage nurse that he received Narcan. Patient denies SI or HI. Related Data Home Medications ?Medication ?Instructions ?Recorded ?Confirmed clonazepam 1 mg tablet 1 mg PO BID PRN Anxiety 02/15/24 05/30/24 dextroamphetamine-amphetamine 20 1 tab PO BID 02/15/24 05/30/24 mg tablet hydroxyzine HCl 25 mg tablet 25 mg PO DAILY@1600 02/15/24 05/30/24 hydroxyzine pamoate 50 mg capsule 50 mg PO DAILY Anxiety 02/15/24 05/30/24 methadone 10 mg/mL oral 120 mg PO DAILY 02/15/24 05/30/24 concentrate (Methadone Intensol) metoprolol succinate 50 mg 100 mg PO DAILY 02/15/24 05/30/24 tablet,extended release 24 hr sertraline 100 mg tablet 150 mg PO DAILY 02/15/24 05/30/24 Allergies Allergy/AdvReac Type Severity Reaction Status Date / Time No Known Allergies Allergy Verified 06/19/24 15:42 Review of Systems Review of Systems: Constitutional : No Weight loss, No Fever, No Chills, No Night Sweats, No Fatigue, No Malaise ENT/Mouth : No Hearing loss, No Ear Pain, No Nasal Congestion, No Sinus Pain, No Hoarseness, No sore throat, No Rhinorrhea, No Swallowing Difficulty Eyes: No Eye Pain, No Swelling, No Redness, No Foreign Body, No Discharge, No Vision Changes Cardiovascular : No Chest Pain, No SOB, No Dyspnea on Exertion, No Orthopnea, No Edema, No Palpitations Respiratory : No Cough, No Sputum, No Wheezing, No Smoke Exposure, No Dyspnea Gastrointestinal : No Nausea, No Vomiting, No Diarrhea, No Constipation, No abdominal Pain, No Hematochezia, No Melena Genitourinary : no irregular bleeding, No Dysuria, No Urinary Frequency, No Hematuria, No Urinary Incontinence, No Urgency, No Flank Pain, No Urinary Flow Changes, No Hesitancy Musculoskeletal : No joint pain, No Myalgias, No Joint Swelling Skin : No Skin Lesions, No rash Neuro : No Weakness, No Numbness, No Paresthesias, No Loss of Consciousness, No Dizziness, No Headache Psych : No Anxiety/Panic, No Depression, No SI/HI/AH/VH, admits to polysubstance abuse Heme/Lymph: No Bruising, No Bleeding,No Lymphadenopathy Endocrine : No Polyuria, No Polydipsia, No Temperature Intolerance [facility] Past Medical History Medical History Opiate abuse, continuous Social History Social History Alcohol intake: never Smoked in Last 30 Days: No Use of substances other than those prescribed or required for medical reasons: Yes Substance Use Type: Marijuana Substance Use Frequency: Daily Advance Directives: No Advance Directives Information Provided: No Do you have a plan to hurt others: No Plan Physical Exam ED Vital Signs: Vital Signs - 24 hr 06/19/24 15:38 Temperature 97.7 F Respiratory Rate 20 BMI result Body Mass Index 26.5 Const Other: Appearance: Alert. Oriented X3 a bit somnolent but easily arousable,. No acute distress. Eyes: Pupils equal, round and reactive to light. ENT: Pharynx normal. Neck: Normal inspection. Neck supple. No lymph nodes noted. No crepitus CVS: Normal heart rate and rhythm. Pulses normal. Normal S1 and S2 Respiratory: No respiratory distress. Breath sounds normal. No Wheezing. No rales Abdomen: Soft and nontender. No rigidity. No distention. Skin: Skin warm and dry. Normal skin color. Normal skin turgor. Extremities: No lower extremity edema. No Lacerations. No Rash Neuro: Oriented X 3. No motor deficit. No sensory deficit. Moving all extremities. No slurred speech. CN 2 through 12 grossly intact Psych: calm, cooperative, normal affect Course Course Course Narrative: Patient is alert, oriented x3, calm and cooperative. Patient is adamant that this was not a suicide attempt, patient states it was an accidental overdose. Patient declined any further assistance with detox versus addiction programs Patient will be discharged with home Narcan Patient's vitals stable Critical Care Time Critical Care Time Critical Care Time: Yes Total Critical Care Time: 35 Attestation: I have personally provided critical care time. Time includes review of lab data, radiology results, discussion with consultants, and monitoring for potential decompensation. Intervention performed as documented. Discharge Plan Discharge Clinical Impression: Overdose Patient Disposition: Home, Self-Care Instructions: Adult Overdose (ED) Additional Instructions: Overdose You were seen in our Emergency Department for an overdose today. You received narcan in order to reverse the effects of overdose. Narcan only lasts about 45 min to 1 hour in the system. You may have been given narcan to take home with you today, please keep it near you if you are going to use again, so others can use it if needed.? The number one risk for fatal overdose is using alone? [facility] is a 16/10 hotline where you can be on the phone with someone while you use, and they can call for help if they suspect an overdose: [phone] Things to look out for when you leave include severe vomiting or diarrhea, headaches, muscle cramps, fever, coughing, chest pain, or if you feel so short of breath you cannot walk to the bathroom. Please seek care and return any time for worsening symptoms.? You may have been provided with safer injection?items, please take time to take care of YOU and your health. Use new supplies whenever possible to lessen the chances of infections and other illnesses.? If you need more supplies, please go [facility],? [address] [place] [address] OR you can call or text to coordinate delivery of safer supplies. If you decide you want to stop or cut down on how much you?re using, please call the numbers on the list provided to you or you can come to our outpatient Addiction Treatment office [facility] (M-F 9am-5p) [facility], [address] [phone] Prescriptions: No Action metoprolol succinate 50 mg tablet extended release 24 hr 100 mg PO DAILY sertraline 100 mg tablet 150 mg PO DAILY hydroxyzine pamoate 50 mg capsule 50 mg PO DAILY dextroamphetamine-amphetamine 20 mg tablet 1 tab PO BID Rx Instructions: Pt takes dose at 0900 and 1400 clonazepam 1 mg tablet 1 mg PO BID PRN (Reason: Anxiety) methadone [Methadone Intensol] 10 mg/mL Concentrate 120 mg PO DAILY hydroxyzine HCl 25 mg Tablet 25 mg PO DAILY@1600 Print Language: U[place]
--- NOTE | 2024-06-19 17:27 | MHC.EDTECH ---
Pt is refusing all tretment at the moment. pt denied this tech and nurse to get blood draw and vital signs
[2024-06-19 17:30] VITALS: BP 116/68; PULSE 56; RESP 18; TEMP 36.7; O2SAT 99
[2024-06-19] MEDS: Naloxone HCl Nasal TAKE HOME 4 MG SPRAY 8 MG NOSTRILALT (18:08)
[2024-06-19 18:11] VITALS: BP 116/68; PULSE 56; RESP 18; TEMP 36.7; O2SAT 99
== END 2024-06-19 18:12 | disposition home or self-care (01) ==
PROVIDERS: Emergency Provider Emergency Medicine; PCP Internal Medicine
DX: T50.901A Poisoning by unspecified drugs, medicaments and biological substances, accidental (unintentional), initial encounter (principal); Y92.9 Unspecified place or not applicable; F11.20 Opioid dependence, uncomplicated
CPT/HCPCS: 93005; 99284

== ENCOUNTER → 2024-06-19 15:07 | Outpatient (BNV) | payer MEDICAID, SELFPAY | PROVIDERS: Emergency Provider Emergency Medicine; PCP Internal Medicine; Visit Provider Internal Medicine Cardiovascular Disease | DX: R94.31 Abnormal electrocardiogram [ECG] [EKG] (principal); T50.901A Poisoning by unspecified drugs, medicaments and biological substances, accidental (unintentional), initial encounter | CPT/HCPCS: 93010 ==